=== PATIENT | female | born 1995 | race African-American/Black ===

== ENCOUNTER 2016-04-13 11:14 | Emergency (ER) | payer OTHER ==
[2016-04-13] MEDS ORDERED: NS 0.9% 1000 ML* 1,000 ML IV ONE (12:05)
[2016-04-13] MEDS ORDERED: Metoclopramide IV* 5 MG/ML 2 ML VIAL IV ONE (12:06)
--- NOTE | 2016-04-13 13:20 | ED ---
GI/ HPI - HPI Summary HPI Summary: Pt here w/ nausea and vomiting x 4 days. She is 6 weeks and has had "morning sickness before" but not this bad. Has been drinking fluids (water, gingerale, etc) and eating bland foods (ie. crackers, etc) but not holding much down. Lost 7 lbs in the past 4 days so decided to come in and get checked out. Feels wiped out. Plans to terminate Friday. Denies fever, chills, URI sx, chest pain, cough, ab pain, diarrhea and/or lack of BM (they've been normal for her). No h/o gastric ulcer, no recent NSAID's and no hememesis nor hematochezia/dark tarry stool. Denies dysuria, flank pain, vaginal d/c and/or pelvic cramping. - History of Current Complaint Chief Complaint: EDNauseaVomitDiarrh Time Seen by Provider: 04/13/16 12:02 Stated Complaint: 6 WEEKS PREG VOMITING Hx Obtained From: Patient Pain Intensity: 8 - Allergy/Home Medications Allergies/Adverse Reactions: Allergies Allergy/AdvReac Type Severity Reaction Status Date / Time No Known Allergies Allergy Verified 04/13/16 12:29 PMH/Surg Hx/FS Hx/Imm Hx Previously Healthy: Yes Endocrine/Hematology History: Denies: Hx Anticoagulant Therapy, Hx Blood Disorders, Hx Diabetes, Hx Thyroid Disease, Hx Anemia, Hx Unexplained Bleeding, Hx Coagulopothy, Autoimmune Disease Respiratory History: Denies: Hx Asthma GI History: Denies: Hx Cirrhosis, Hx Crohn's Disease, Hx Diverticulosis, Hx Gall Bladder Disease, Hx Gastroesophageal Reflux Disease, Hx Gastrointestinal Bleed, Hx Hiatal Hernia, Hx Irritable Bowel, Hx Obstructive Bowel, Hx Ulcer Infectious Disease History: No Infectious Disease History: Denies: Traveled Outside the [place] in Last 30 Days - Family History Known Family History: Positive: None - Social History Occupation: Unemployed Lives: With Family - sister - lives outside of [place] Alcohol Use: Occasionally Substance Use Type: Reports: Marijuana - daily Hx Tobacco Use: No Smoking Status (MU): Never Smoked Tobacco Review of Systems Negative: Fever, Chills ENT: Negative Negative: Chest Pain Negative: Shortness Of Breath Gastrointestinal: Other - see HPI Genitourinary: Other - still urinating Negative: burning, dysuria, discharge, frequency, flank pain Musculoskeletal: Negative Skin: Negative Positive: Headache - mild and intermittent, Weakness - generalized. Negative: Paresthesia, Numbness, Syncope, Slurred Speech Psychological: Normal All Other Systems Reviewed And Are Negative: Yes Physical Exam Triage Information Reviewed: Yes Vital Signs On Initial Exam: Initial Vitals Temp Pulse Resp BP Pulse Ox 98.8 F 79 18 108/63 100 04/13/16 11:15 04/13/16 11:15 04/13/16 11:15 04/13/16 11:15 04/13/16 11:15 Vital Signs Reviewed: Yes Appearance: Positive: Well-Appearing - appears midly fatigued, No Pain Distress , Well-Nourished Skin: Positive: Warm, Dry Head/Face: Positive: Normal Head/Face Inspection Eyes: Positive: Normal, EOMI, Conjunctiva Clear - anicteric sclera ENT: Positive: Hearing grossly normal, Pharynx normal - mucosa moist Neck: Positive: Supple, Nontender Respiratory/Lung Sounds: Positive: Clear to Auscultation, Breath Sounds Present. Negative: Rales, Rhonchi, Wheezes Cardiovascular: Positive: Normal, RRR, Pulses are Symmetrical in both Upper and Lower Extremities, S1, S2. Negative: Murmur, Rub Abdomen Description: Positive: Nontender, No Organomegaly, Soft Bowel Sounds: Positive: Present Musculoskeletal: Positive: Normal, Strength/ROM Intact Neurological: Positive: Normal, Sensory/Motor Intact, Alert, Oriented to Person Place, Time, CN Intact II-III Psychiatric: Positive: Normal - [place] Coma Scale Coma Scale Total: 15 Diagnostics - Vital Signs Vital Signs Temp Pulse Resp BP Pulse Ox 04/13/16 11:15 98.8 F 79 18 108/63 100 - Laboratory Lab Statement: Any lab studies that have been ordered have been reviewed, and results considered in the medical decision making process. Re-Evaluation - Re-Evaluation First Eval Change: Improved - s/p reglan and IV fluids - tolerating PO fluids GIGU Course/Dx - Diagnoses Provider Diagnoses: Hyperemesis gravidarum - Physician Notifications Discussed Care Of Patient With: Dr. Weir Discharge - Discharge Plan Condition: Stable Disposition: HOME Prescriptions: Metoclopramide TAB* [Reglan TAB*] 10 mg PO Q8H PRN #9 tab PRN Reason: Nausea Patient Education Materials: Hyperemesis Gravidarum (ED) Additional Instructions: You may take anti-nausea medicine to prevent vomiting - continue to stay hydrated with water, gingerale, juice, etc - avoid stimulants (ie. coffee, tea, soda, chocolate, etc) You may eat bland, easy to digest foods (ie. saltines, chicken broth, etc) Follow-up with OBGYN upon return home this week *If you develop intractable vomiting and/or fever, chills, chest pain, shortness of breath, heavy vaginal bleeding, abdominal pain, or pain with urination, return to ED
[2016-04-13 14:02] VITALS: BP 103/59
== END 2016-04-13 14:01 | disposition home or self-care (01) ==
LOC: ED 11:14
DX: O21.0 Mild hyperemesis gravidarum (principal); Z3A.01 Less than 8 weeks gestation of pregnancy
CPT/HCPCS: 96360; 96374; 99283; J2765